=== PATIENT | female | born 1950 | race Hispanic/Latino ===

== ENCOUNTER → 2019-09-04 | Outpatient (CLI) | payer OTHER ==
[~2019-09-04] MED LIST: ACET1TAB12 PO; ASPI-555 PO; CHOL50009 PO; HYDR12.530 PO; IBUP-2070 PO; LEVO50 PO; LOSA50TA64 PO; LOVA40TA2 PO; METO-391 PO; OMEP20TA25 PO; PEG15DRO4 OP
== END | disposition home or self-care (01) ==
LOC: RAH 09:56
PROVIDERS: ATTEND Family Medicine
DX: Z08 Encounter for follow-up examination after completed treatment for malignant neoplasm (principal); Z85.3 Personal history of malignant neoplasm of breast
CPT/HCPCS: 77065

== ENCOUNTER → 2021-10-19 | Outpatient (CLI) | payer OTHER ==
[~2021-10-19] MED LIST changes: -ASPI-555 PO; +ASPI-556 PO
== END | disposition home or self-care (01) ==
LOC: RAH 13:48
PROVIDERS: ATTEND Family Medicine
DX: R92.2 Inconclusive mammogram (principal); Z85.3 Personal history of malignant neoplasm of breast; Z90.12 Acquired absence of left breast and nipple
CPT/HCPCS: 77065

== ENCOUNTER → 2025-01-07 | Outpatient (CLI) | payer OTHER ==
[~2025-01-07] MED LIST changes: +OMEP20TA20 PO; -OMEP20TA25 PO
--- NOTE | 2025-01-07 11:53 | HMCIMG ---
DIAGNOSTIC MAMMOGRAM HISTORY: HX OF BREAST CA COMPARISON: 10/29/2022 TECHNIQUE: Right breast digital diagnostic mammogram was performed. No additional views were obtained. FINDINGS: Parenchymal density: There are scattered areas of fibroglandular density. There is no evidence of a dominant mass, or suspicious microcalcification. There is no evidence of nipple retraction or skin thickening. IMPRESSION: 1. Stable right breast mammogram. The patient was entered into a reminder system with a target due date for their next mammogram. BI-RADS CATEGORY 2: BENIGN FINDINGS Recommend monthly self breast exam as well as annual clinical examination. A negative x-ray should not delay biopsy if a dominant or clinically suspicious mass is present, since 8-10% of cancers are not identified by mammography. Dense breasts particularly, may obscure an underlying neoplasm. Some of these may be detected clinically and therefore, clinical examination is an essential part of breast evaluation.
== END | disposition home or self-care (01) ==
LOC: RAH 11:28
PROVIDERS: ATTEND Internal Medicine Hematology & Oncology
DX: C50.112 Malignant neoplasm of central portion of left female breast (principal); R92.321 Mammographic fibroglandular density, right breast; A09 Infectious gastroenteritis and colitis, unspecified; E86.0 Dehydration; R11.2 Nausea with vomiting, unspecified; Z17.0 Estrogen receptor positive status [ER+]; Z85.3 Personal history of malignant neoplasm of breast
CPT/HCPCS: 77065